=== PATIENT | female | born 1985 | race Native Hawaiian/Other Pacific Islander ===

== ENCOUNTER → 2017-10-17 | Outpatient (CLI) | payer MEDICAID | LOC: FIMAGING 13:15 | PROVIDERS: ATTEND Midwife | DX: O26.21 Pregnancy care for patient with recurrent pregnancy loss, first trimester (principal); O26.851 Spotting complicating pregnancy, first trimester; Z3A.12 12 weeks gestation of pregnancy ==

== ENCOUNTER → 2017-12-12 | Outpatient (CLI) | payer MEDICAID | LOC: FIMAGING 13:15 | PROVIDERS: ATTEND Midwife | DX: O26.22 Pregnancy care for patient with recurrent pregnancy loss, second trimester (principal); F32.9 Major depressive disorder, single episode, unspecified; F41.9 Anxiety disorder, unspecified; Z3A.20 20 weeks gestation of pregnancy ==

== ENCOUNTER → 2018-02-27 | Outpatient (CLI) | payer MEDICAID | LOC: FIMAGING 14:11 | PROVIDERS: ATTEND Midwife | DX: O09.293 Supervision of pregnancy with other poor reproductive or obstetric history, third trimester (principal); Z3A.31 31 weeks gestation of pregnancy ==